=== PATIENT | female | born 1985 | race Caucasian/White ===

== ENCOUNTER 2019-06-20 08:35 | Inpatient (IN) ==
[2019-06-20] MEDS ORDERED: OXYTOCIN 30 UNITS/500 ML BAG IV PRN ×3 (09:47→19:20)
[2019-06-20] MEDS ORDERED: LACTATED RINGER'S 1,000 ML IV PRN (09:47)
--- NOTE | 2019-06-20 09:54 | Obstetrical Progress Note ---
Date of Service June 20, 2019 Subjective Pt doing well SROM @ 0630HRS- Clear fluid bedside sono; Vt. FHR; CAT 1 Ctx ; Minimal VE: Ft/50/post/-3 Plan Discussed starting Pitocin augmentation, 4hrs after SROM if ctx are inadequate Results & Data ([facility]) Vital Signs (Past 12 Hours) Vital Signs Temp Pulse Resp BP 06/20/19 08:54 36.9 C 108 H 16 131/77
[2019-06-20] MEDS ORDERED: PENICILLIN G POTASSIUM 6 MU in DEXTROSE 5% 250 ML IV ONE (10:00)
[2019-06-20 10:13] LABS: Hematocrit (blood only) 32.9 % (37-47); Mean Corpuscular Hemoglobin 28.4 pg (25-34); Mean Corpuscular Volume 84.8 fL (80-100); Mean Platelet Volume 9.3 fL (7.4-10.4); Platelet Count 239 K/uL (130-400); Red Blood Count 3.88 M/uL (4.2-5.4); White Blood Count 12.53 K/uL (4.8-10.8)
[2019-06-20 10:16] LABS: Mean Corpuscular Hgb Conc 33.4 g/dL (32-36)
[2019-06-20] MEDS: PENICILLIN G POTASSIUM 3 MU in DEXTROSE 5% 100 ML IV PRN ×2 (14:34→18:08)
[2019-06-20] MEDS ORDERED: ACETAMINOPHEN 325 MG TAB PO PRN (19:20)
[2019-06-20] MEDS ORDERED: HYDROCORTISONE ACETATE 25 MG SUPP PR PRN (19:20)
[2019-06-20] MEDS ORDERED: DIPHTHERIA/TETANUS/PERTUSSIS 0.5 ML SYR/VIAL IM ONE (19:20)
[2019-06-20] MEDS ORDERED: BENZOCAINE 20% AER SPR 82.5 GM CAN EXT PRN (19:20)
[2019-06-20] MEDS ORDERED: SUPERCREAM 0.870% 15 GM JAR EXT PRN (19:20)
[2019-06-20] MEDS ORDERED: bisacodyL 10 MG SUPP PR PRN (19:20)
[2019-06-20] MEDS: IBUPROFEN 600 MG TAB PO PRN (20:13)
--- NOTE | 2019-06-20 20:41 | Delivery Summary ---
DATE OF OPERATION: 06/20/2019 The patient delivered a live male infant in left occiput anterior presentation. There was no nuchal cord. Infant was delivered, placed on mother's abdomen. Cord was clamped and cut after 1 minute. Cord blood was obtained. Placenta spontaneously delivered. Inspection of the placenta shows normal grossly looking placenta with 3-vessel cord. Infant's weight is pending. Apgars 8 and 9. Inspection of the perineum showed a second-degree midline laceration, which was repaired with Vicryl. Rectal exam post repair showed good sphincter tone. There was good hemostasis. Estimated blood loss is 400 mL. Baby and mother are doing well in recovery . All instruments were removed from the vagina and accounted for x2 including sponges, needles and retractors. I attest to the content of the Intraoperative Record and any orders documented therein. Any exception s are noted below.
[2019-06-20] MEDS: DOCUSATE SODIUM 100 MG CAP PO SCH (22:16)
[2019-06-21] MEDS: IBUPROFEN 600 MG TAB PO PRN ×2 (03:54→08:11)
[2019-06-21 06:15] LABS: Hematocrit (blood only) 28.8 % (37-47); Hemoglobin 9.6 g/dL (12.0-16.0); Mean Corpuscular Hemoglobin 28.8 pg (25-34); Mean Corpuscular Hgb Conc 33.3 g/dL (32-36); Mean Corpuscular Volume 86.5 fL (80-100); Platelet Count 232 K/uL (130-400); RDW Coefficient of Variation 14.3 % (11.5-14.5); RDW Standard Deviation 44.8 fL (36.4-46.3); Red Blood Count 3.33 M/uL (4.2-5.4); White Blood Count 17.85 K/uL (4.8-10.8)
[2019-06-21] MEDS: PRENATAL VITAMIN 1 TAB PO SCH (08:11)
[2019-06-21] MEDS: DOCUSATE SODIUM 100 MG CAP PO SCH ×2 (08:11→19:57)
--- NOTE | 2019-06-21 09:21 | Obstetrical Progress Note ---
Date of Service June 21, 2019 Assessment & Plan Admission and Anticipated Discharge Date Admission Date: June 20, 2019 Subjective Patient is seen and examined. She feels well, no complaints. Ambulating without dizziness Voiding without difficulty Tolerating regular diet with out N&V Bleeding is minimal No fever/ chills/ CP/ SOB/ N&V/ Leg pain Breast feeding without problems Vital Signs Temp Pulse Pulse Resp BP BP Pulse Ox 06/21/19 07:35 36.9 C 78 18 120/74 98 06/21/19 03:45 37.1 C 88 20 123/76 98 06/20/19 23:10 37.1 C 92 H 20 113/67 97 06/20/19 21:30 36.8 C 102 H 18 128/72 97 06/20/19 21:25 112 H 124/58 L 06/20/19 21:24 36.8 C 18 06/20/19 20:55 108 H 118/70 06/20/19 20:54 18 06/20/19 20:40 100 H 108/75 06/20/19 20:25 95 H 126/76 06/20/19 20:24 18 06/20/19 20:09 20 06/20/19 19:55 100 H 125/59 L 06/20/19 19:54 18 06/20/19 19:40 98 H 120/62 06/20/19 19:39 18 06/20/19 19:24 37.0 C 100 H 20 118/91 06/20/19 18:03 37.0 C 86 20 141/73 H 06/20/19 17:34 100 H 136/67 06/20/19 17:33 101 H 139/91 06/20/19 16:34 37.0 C 81 20 122/69 06/20/19 15:38 83 124/70 06/20/19 14:52 36.6 C 85 18 125/66 06/20/19 13:32 88 129/68 06/20/19 12:30 36.8 C 89 20 133/71 06/20/19 11:28 91 H 144/80 H 06/20/19 10:28 36.8 C 94 H 20 121/64 Intake and Output 06/20/19 06/21/19 06/21/19 22:59 06:59 14:59 Intake Total 1001.766 / 1399.333 Output Total 1750 / 2575 Balance -748.234 / -1175.667 Intake: IV 1001.766 / 1399.333 Lr 1,000 ml @ 125 mls/hr IV . 320.833 / 708.333 Q8H PRN Rx#:[id number] PITOCIN 30 units In 500 ml @ 59 489.933 / 500.000 .94 UNITS/HR 999 mls/hr IV . Q31M PRN Rx#:[id number] Pfizerpen 3 Mu In D5 100 ml @ 191 / 191 100 mls/hr IV Q4H PRN Rx#: [id number] Output: Urine 1550 / 2375 Emesis 200 / 200 Lab Results 06/20/19 06/21/19 Range/Units 09:59 06:02 WBC 12.53 H 17.85 H (4.8-10.8) K/uL RBC 3.88 L 3.33 L (4.2-5.4) M/uL Hgb 11.0 L 9.6 L (12.0-16.0) g/dL Hct 32.9 L 28.8 L (37-47) % MCV 84.8 86.5 (80-100) fL MCH 28.4 28.8 (25-34) pg MCHC 33.4 33.3 (32-36) g/dL RDW Std Deviation 43.0 44.8 (36.4-46.3) fL RDW Coeff of Cruz 14.0 14.3 (11.5-14.5) % Plt Count 239 232 (130-400) K/uL MPV 9.3 9.0 (7.4-10.4) fL PE: General: Alert, orientedx3, NAD Abd: soft, NT, fundus firm, below Umbilicus Perineum intact, Lochia rubra minimal Ext; NT, no edema AP: 34 yo s/p , ppd# 1 VSS Afebrile doing well Continue routine care CBC in am All questions were answered D/C home tomorrow Results & Data ([facility]) Vital Signs (Past 12 Hours) Vital Signs Temp Pulse Pulse Resp BP BP Pulse Ox 06/21/19 07:35 36.9 C 78 18 120/74 98 06/21/19 03:45 37.1 C 88 20 123/76 98 06/20/19 23:10 37.1 C 92 H 20 113/67 97 06/20/19 21:30 36.8 C 102 H 18 128/72 97 06/20/19 21:25 112 H 124/58 L 06/20/19 21:24 36.8 C 18
[2019-06-21] MEDS: IBUPROFEN 600 MG TAB PO SCH ×3 (11:48→23:34)
[2019-06-21] MEDS ORDERED: bisacodyL 5 MG TABEC PO SCH (20:00)
[2019-06-22] MEDS: IBUPROFEN 600 MG TAB PO SCH (05:55)
[2019-06-22 06:06] LABS: Basophils # (auto) 0.03 K/uL (0-0.2); Basophils % (auto) 0.2 %; Eosinophils # (auto) 0.21 K/uL (0-0.5); Eosinophils % (auto) 1.5 %; Hematocrit (blood only) 28.9 % (37-47); Hemoglobin 9.5 g/dL (12.0-16.0); Immature Granulocytes # (auto) 0.08 K/uL (0.00-0.02); Immature Granulocytes % (auto) 0.6 %; Lymphocytes # (auto) 3.58 K/uL (1.2-3.4); Lymphocytes % (auto) 25.9 %; Mean Corpuscular Hemoglobin 28.4 pg (25-34); Mean Corpuscular Hgb Conc 32.9 g/dL (32-36); Mean Corpuscular Volume 86.3 fL (80-100); Mean Platelet Volume 9.3 fL (7.4-10.4); Monocytes # (auto) 0.84 K/uL (0.11-0.59); Monocytes % (auto) 6.1 %; Neutrophils # (auto) 9.06 K/uL (1.4-6.5); Neutrophils % (auto) 65.7 %; Platelet Count 233 K/uL (130-400); RDW Coefficient of Variation 14.5 % (11.5-14.5); RDW Standard Deviation 45.5 fL (36.4-46.3); Red Blood Count 3.35 M/uL (4.2-5.4)
[2019-06-22] MEDS: PRENATAL VITAMIN 1 TAB PO SCH (08:00)
[2019-06-22] MEDS: DOCUSATE SODIUM 100 MG CAP PO SCH (08:00)
--- NOTE | 2019-06-22 08:14 | Obstetrical Progress Note ---
Date of Service June 22, 2019 Assessment & Plan Admission and Anticipated Discharge Date Admission Date: June 20, 2019 Physical Exam Constitutional: WD/WN, vitals as above comfortable abdomen soft and non- tender fundus firm no edema neg [facility] for discharge Results & Data ([facility]) Vital Signs (Past 12 Hours) Vital Signs Temp Pulse Resp BP Pulse Ox 06/21/19 23:25 36.7 C 90 18 121/71 98 Laboratory Results Laboratory Results - last 72 hr 06/20/19 06/21/19 06/22/19 09:59 06:02 05:38 WBC 12.53 H 17.85 H 13.80 H RBC 3.88 L 3.33 L 3.35 L Hgb 11.0 L 9.6 L 9.5 L Hct 32.9 L 28.8 L 28.9 L MCV 84.8 86.5 86.3 MCH 28.4 28.8 28.4 MCHC 33.4 33.3 32.9 RDW Std Deviation 43.0 44.8 45.5 RDW Coeff of Cruz 14.0 14.3 14.5 Plt Count 239 232 233 MPV 9.3 9.0 9.3 Immature Gran % (Auto) 0.6 Neut % (Auto) 65.7 Lymph % (Auto) 25.9 [place] % (Auto) 6.1 Eos % (Auto) 1.5 Baso % (Auto) 0.2 Immature Gran # (Auto) 0.08 H Neut # (Auto) 9.06 H Lymph # (Auto) 3.58 H [place] # (Auto) 0.84 H Eos # (Auto) 0.21 Baso # (Auto) 0.03
== END 2019-06-22 13:35 | disposition home or self-care (01) | DRG 807 ==
LOC: OPB 08:35 → 4S1 08:42 → 4S2 21:58